=== PATIENT | female | born 1975 | race Caucasian/White ===

== ENCOUNTER → 2017-12-22 | Outpatient (CLI) | payer OTHER | LOC: BMCIMAGING 09:01 | PROVIDERS: ATTEND Family Medicine | DX: Z12.31 Encounter for screening mammogram for malignant neoplasm of breast (principal) ==

== ENCOUNTER → 2018-01-09 | Outpatient (CLI) | payer OTHER | LOC: BMCIMAGING 09:40 | PROVIDERS: ATTEND Family Medicine | DX: R92.8 Other abnormal and inconclusive findings on diagnostic imaging of breast (principal) ==

== ENCOUNTER 2018-07-16 17:26 | Emergency (ER) | payer OTHER ==
--- NOTE | 2018-07-16 17:46 | EDPHY ---
H & P Time Seen by Provider: 07/16/18 17:37 HPI/ROS: HPI Left calf pain. Long plane flight. 42-year-old female by private vehicle. This patient reports that she just returned on a long flight from [place] yesterday. She reports that last night she was awakened several times by a cramping sensation in her left calf. She reports that it got a little better through the night but was bothering her again this morning. She reports she has a history of left-sided sciatica and that the pain feels different from the pain she has had in association with that. She denies any history of trauma. She denies any significant swelling in her left lower extremity. No other complaints. ROS: Constitutional: No fever, no chills. No weakness. Respiratory: No cough. No shortness of breath. Cardiac: No chest pain, no palpitations. Musculoskeletal: No back pain. No neck pain. As above. Skin: No rashes. Neurological: No focal weakness or altered sensation. Past medical history: Appendectomy. Social history: Nonsmoker. No alcohol. She is here by herself. Physical Exam: General Appearance: Alert, no distress. This patient is responding to questions appropriately and in full sentences. This patient appears well- hydrated and well-nourished. Eyes: Pupils equal and round no pallor or injection. No lid edema, erythema or injection. Left lower extremity exam: She has some vague tenderness involving the lateral posterior aspect of the mid calf musculature. No erythema or warmth noted. No ecchymosis. No significant swelling or edema. There is no significant asymmetric swelling noted in comparison to the right lower extremity. No palpable cords. Negative Raffy sign. The left lower extremity is neurovascularly intact. Neurological: Motor sensory function is grossly intact. Cranial nerves are normal. Gait is normal. Skin: Warm and dry, no rashes. Musculoskeletal: No midline or paraspinal tenderness on palpation of the thoracic lumbar and sacral spine. Extremities are symmetrical. All joints range without pain or impingement. Psychiatric: No agitation. No depression. Database: EKG: Imaging: Left lower extremity venous Doppler ultrasound: Negative for DVT or other pathology. Results were discussed with staff radiologist Dr. Bebeto Lara. Procedures: Emergency department course: Triage vital signs reviewed and are normal. Left lower extremity venous Doppler ultrasound to be obtained. 6:30 p.m., the patient was re-evaluated, resting comfortably at this time. I discussed the results of her ultrasound with her. Repeat exam of the left lower extremity is unremarkable. She feels comfortable going home at this time and I feel she is safe for discharge. Follow-up and return to emergency department precautions reviewed with her. All of her questions were answered. She was discharged from the emergency department in good condition. Differential Diagnosis: The differential diagnosis on this patient includes but is not limited to evaluate for left lower extremity DVT. This represents a partial list of diagnoses considered. These considerations are based on history, physical exam , past history, reassessment and diagnostic testing. Smoking Status: Never smoked Constitutional: Initial Vital Signs Temperature (C) 36.9 C 07/16/18 17:31 Heart Rate 81 07/16/18 17:31 Respiratory Rate 17 07/16/18 17:31 Blood Pressure 119/83 H 07/16/18 17:31 O2 Sat (%) 97 07/16/18 17:31 O2 Delivery Mode Room Air Allergies/Adverse Reactions: No Known Allergies Allergy (Unverified 07/16/18 17:31) Home Medications: Medication Instructions Recorded NK [No Known Home Meds] 07/16/18 Departure - Departure Disposition: Home, Routine, Self-Care Clinical Impression: Pain of left calf Condition: Good Instructions: Leg Cramps (ED) Additional Instructions: Read and follow provided instructions. Follow-up with your primary care physician in 1-2 days for re-evaluation as needed. Ibuprofen dosin mg every 6 hours with meals for the next 3 days only. Take only as needed for pain. Return to the emergency department for worsening pain, swelling, discoloration, altered sensation or other serious concerns. Referrals: Mayra Liu MD [Primary Care Provider] - As per Instructions
[2018-07-16 18:34] VITALS: BP 129/77
== END 2018-07-16 18:40 | disposition home or self-care (01) ==
DX: M79.662 Pain in left lower leg (principal)